=== PATIENT | male | born 1955 | race Caucasian/White ===

== ENCOUNTER 2020-08-19 10:33 | Emergency (ER) | payer OTHER ==
[~2020-08-19] VITALS: Ht 172.7 cm; Wt 52.6 kg
[2020-08-19] MEDS ORDERED: SODIUM CHLORIDE FLUSH 10ML SYR IVF ONE (11:00)
[2020-08-19 11:15] LABS: BASOPHILS % (AUTO) 1 % (0-1); EOSINOPHILS % (AUTO) 1 % (1-7); LYMPHOCYTES % (AUTO) 23 % (22-44); MEAN CORPUSCULAR HEMOGLOBIN 31.6 pg (27.5-34.5); MEAN CORPUSCULAR HGB CONC 33.5 g/dL (33.2-36.2); MEAN PLATELET VOLUME 7.2 fL (7.4-10.4); MONOCYTES % (AUTO) 6 % (2-9); NEUTROPHILS % (AUTO) 70 % (42-75); PLATELET COUNT 410 x10^3/uL (130-400); RED BLOOD COUNT 4.16 x10^6/uL (4.38-5.82); RED CELL DISTRIBUTION WIDTH 14.6 % (9.4-14.8)
[2020-08-19 11:22] VITALS: BP 109/68
[2020-08-19 11:25] LABS: ALANINE AMINOTRANSFERASE 17 U/L (12-78); ALBUMIN 3.4 g/dL (3.4-5.0); ANION GAP 5 mmol/L (5-15); CALCIUM 9.7 mg/dL (8.5-10.1); CHLORIDE 105 mmol/L (98-107); CREATININE 0.99 mg/dL (0.7-1.3)
[2020-08-19 11:26] LABS: MD NO
[2020-08-19 11:30] LABS: ALKALINE PHOSPHATASE 80 U/L (45-117); BILIRUBIN,TOTAL 0.3 mg/dL (0.2-1.0); TOTAL PROTEIN 8.6 g/dL (6.4-8.2); TROPONIN I < 0.015 ng/mL (0.000-0.045)
--- NOTE | 2020-08-19 11:54 | NUR ---
THIS IS A 64 YR OLD MALE WITH NO MEDICAL HX AND 41 YR PACK HX OF SMOKING. PT STATES FOR 1 MONTH NOW INCREASE IN SOB AND COUGHING UP OF ISAIAS BLOOD. PT ON O2 AND NIBP MONITORING NADN
[2020-08-19] MEDS ORDERED: OMNIPAQUE 350 MG/ML, 75ML BOTTLE ONE (12:00)
[2020-08-19] MEDS ORDERED: DOXYCYCLINE 100MG TABLET ONE (12:59)
[2020-08-19] MEDS ORDERED: DOXYCYCLINE 100MG TABLET PO ONE (13:00)
[2020-08-19] MEDS ORDERED: CEFTRIAXONE 1,000 MG in DEXTROSE 5% 50 ML IVPB ONE (13:00)
== END 2020-08-19 13:32 | disposition home or self-care (01) ==
LOC: ED 13:15
DX: J18.9 Pneumonia, unspecified organism (principal); C34.90 Malignant neoplasm of unspecified part of unspecified bronchus or lung; R04.2 Hemoptysis; R94.31 Abnormal electrocardiogram [ECG] [EKG]; G89.29 Other chronic pain
CPT/HCPCS: 36415; 71045; 71260; 80053; 83880; 84484; 85025; 93005; 96374; 99285; J0696; Q9967

== ENCOUNTER 2020-08-31 14:30 | Outpatient (CLI) | payer OTHER ==
[~2020-08-31 14:30] MED LIST: AZIT250T PO; CEFD300C37 PO
== END 2020-08-31 23:59 | disposition home or self-care (01) ==
LOC: RAD 14:30
PROVIDERS: ATTEND Internal Medicine
DX: Z02.9 Encounter for administrative examinations, unspecified (principal)

== ENCOUNTER → 2020-09-12 | Outpatient (CLI) | payer OTHER | END | disposition home or self-care (01) | LOC: ROC 07:16 | PROVIDERS: ATTEND Radiology Radiation Oncology | DX: C34.11 Malignant neoplasm of upper lobe, right bronchus or lung (principal); G89.29 Other chronic pain; Z87.891 Personal history of nicotine dependence | CPT/HCPCS: 99214; G0463 ==